=== PATIENT | female | born 2000 | race Caucasian/White ===

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

== ENCOUNTER → 2023-06-22 | Outpatient (CLI) | payer BC | END | disposition home or self-care (01) | LOC: LAB 17:19 | PROVIDERS: ATTEND Allergy & Immunology | DX: J30.89 Other allergic rhinitis (principal) ==

== ENCOUNTER → 2023-11-30 | Outpatient (CLI) | payer BC ==
[2023-11-30 10:50] LABS: ALKALINE PHOSPHATASE 42 U/L (46-116); BUN 10 mg/dl (9-23); CHLORIDE 107 mmol/L (98-107); FREE T4 1.55 ng/dl (0.89-1.76); POTASSIUM 4.4 mmol/L (3.4-5.1); SGPT/ALT 11 U/L (5-49); T3 UPTAKE 33.5 % (22.4-36.7); THYROXINE (T4) TOTAL 8.3 ug/dl (4.5-10.9); TOTAL PROTEIN 7.5 gm/dL (6.0-8.0)
== END | disposition home or self-care (01) ==
LOC: LAB 09:53
PROVIDERS: ATTEND Social Worker Clinical
DX: F42.8 Other obsessive-compulsive disorder (principal); F90.0 Attention-deficit hyperactivity disorder, predominantly inattentive type; F31.30 Bipolar disorder, current episode depressed, mild or moderate severity, unspecified

== ENCOUNTER → 2024-04-25 | Outpatient (CLI) | payer BC ==
[2024-04-25 13:18] LABS: BASO # 0.1 10*3/uL (0.0-0.1); BASO % 1.1 % (0.0-1.0); EOS # 0.2 10*3/uL (0.0-0.4); EOS % 2.6 % (1.0-4.0); HEMATOCRIT 38.3 % (37.0-47.0); MEAN CELL VOLUME 94.8 fl (81.0-99.0); MEAN CORPUSCULAR HGB 32.9 pg (27.0-31.0); MEAN CORPUSCULAR HGB CONC 34.7 g/dl (33.0-37.0); MEAN PLATELET VOLUME 10.6 fl (9.6-12.3); MONO # 0.4 10*3/uL (0.1-1.0); MONO % 5.9 % (3.0-9.0); NEUT % 60.1 % (47.0-73.0); PLATELET COUNT AUTOMATED 245 10*3/uL (130-400); RED BLOOD COUNT 4.04 10*6/uL (4.10-5.10); RED CELL DISTRI WIDTH 11.6 % (0-14.5); WHITE BLOOD COUNT 6.6 10*3/uL (4.8-10.8)
[2024-04-25 13:47] LABS: ALKALINE PHOSPHATASE 37 U/L (46-116); CHOLESTEROL 151 mg/dL (<200); SGPT/ALT 9 U/L (5-49); TOTAL PROTEIN 7.3 gm/dL (6.0-8.0); TRIGLYCERIDES 31 mg/dl (<150)
[2024-04-25 13:50] LABS: B-hCG (QUALITATIVE) NEGATIVE (NEGATIVE)
== END | disposition home or self-care (01) ==
LOC: LAB 12:30
PROVIDERS: ATTEND Nurse Practitioner
DX: Z51.81 Encounter for therapeutic drug level monitoring (principal); Z79.899 Other long term (current) drug therapy